=== PATIENT | female | born 1960 | race Caucasian/White ===

== ENCOUNTER 2023-03-25 11:00 | Emergency (ER) | payer OTHER, SELFPAY ==
[2023-03-25 11:43] VITALS: BP 116/72; PULSE 72; RESP 16; TEMP 36.3; O2SAT 99; BMI 23.0
--- NOTE | 2023-03-25 15:05 | ED.GENADULT ---
HPI - General Adult General Chief complaint: Back Injury/Pain Stated complaint: pain behind right shoulder blade Time Seen by Provider: 03/25/23 15:05 History of Present Illness HPI narrative: Two days of pain behind right shoulder blade, I thought I pulled a muscle . 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 Referred by clinic. Patient has used iced/ heat/tylenol ( two this morning). 62-year-old woman presenting to the emergency department with complaint of 2 days of increasing pain sharp deep to her right shoulder blade. Does have a history of herniated discs and has had disc surgery of the lumbar spine. This is not actually radiating down her arm. Not actually weak. Feels okay initially in the morning but once gets moving starts to hurt much more. No particular trauma but did spend the weekend hunched over making jewelry. Hurts more to extend neck and spine/stand straight up. Has taken acetaminophen without relief. Also icing and heating. Was just too uncomfortable as notice by her colleagues recommended to be evaluated. Related Data Home Medications Medication Instructions Recorded Confirmed dextroamphetamine-amphetamine ER 1 cap PO DAILY 03/25/23 03/25/23 30 mg 24hr capsule,extend release (Adderall XR) Allergies Allergy/AdvReac Type Severity Reaction Status Date / Time No Known Drug Allergies Allergy Verified 03/25/23 11:47 Review of Systems Status of ROS: Reports: 6 or more systems reviewed and unremarkable except as noted in History and below PFSH PFS Social History Smoking Status: Never smoker Do you use any of these nicotine containing products: None How often do you have a drink containing alcohol: never AUDIT-C Alcohol total score: 0 Non-prescribed substance use: denies use Exam Narrative: Exam Narrative: When I enter the room is standing leaning over the counter a little bit. Draped with a blanket. Clearly very uncomfortable. There a pile of tissues on the desk. Generally slow and cautious in movements. Head is atraumatic. Neck is nontender. demonstrates limited neck rotation to the right to about 40? before pain becomes more intense. Extension is also uncomfortable. Do not appreciate any swellings or erythema. Good range of motion about the shoulder but elevation of the right arm starts to cause pain as well. Extremely tender to palpation of the right rhomboids with scapular retraction. Tense in the trapezial musculature on the right. Well-perfused peripherally. Good pulses and sensation. Good and equal management trainee program stores strength. Const: Vital Signs, click to edit/add: Vital Signs - 24 hr 03/25/23 11:43 03/25/23 15:58 Temperature 97.3 F L 97.1 F L Pulse Rate [Pulse Oximeter] 72 73 Respiratory Rate 16 24 Blood Pressure [Ri ght Upper Arm] 116/72 128/77 Pulse Oximetry 99 Oxygen Delivery Me thod Room Air Documenting provider has reviewed patient's vital signs: yes Course Vital Signs Vital signs: Initial Vital Signs Temperature 97.3 F L 03/25/23 11:43 Temperature Source Temporal Artery Scan 03/25/23 11:43 Pulse Rate 72 03/25/23 11:43 Respiratory Rate 16 03/25/23 11:43 Blood Pressure 116/72 03/25/23 11:43 Blood Pressure Mean 86 03/25/23 11:43 Pulse Oximetry 99 03/25/23 11:43 Oxygen Delivery Method Room Air 03/25/23 11:43 Vital Signs Temperature 97.3 F L 03/25/23 11:43 Pulse Rate 72 03/25/23 11:43 Respiratory Rate 16 03/25/23 11:43 Blood Pressure 116/72 03/25/23 11:43 Pulse Oximetry 99 03/25/23 11:43 Oxygen Delivery Method Room Air 03/25/23 11:43 Temperature 97.1 F L 03/25/23 15:58 Pulse Rate 73 03/25/23 15:58 Respiratory Rate 24 03/25/23 15:58 Blood Pressure 128/77 03/25/23 15:58 Pulse Oximetry 99 03/25/23 11:43 Oxygen Delivery Method Room Air 03/25/23 11:43 Medical Decision Making MDM Narrative Medical decision making narrative: Think this is more likely add a jumped facet and resulting muscle spasm. Clearly she has reproducible pain in the rhomboids. Given her history of cervical disease this do could be a radicular pain from there. Unclear though of ?bulging disc? is related. Does not have peripheral symptoms beyond the rhomboids. Without new trauma imaging modalities readily available in the ER I think are less useful.. MRI spoken for at the moment and could be managed outpatient. I believe Ms. Shelby was hoping for an MRI in the emergency department. I did offer localized anesthetic injection of the rhomboid area which was declined. Also offered other injection of pain medicine but she is driving and general would prefer not to take medication if possible. We discussed potential benefit of steroids but she would like to defer that at this time to follow up. See patient discharge plan Discharge Plan Discharge Clinical Impression: Neck arthralgia, Muscle spasm, Rhomboid pain Patient Disposition: Home, Self-Care Condition: Stable Additional Instructions: I would place ice packs few times daily over the next few days as discussed. Could alternate with warm moist packs as well. Can take up to 800 mg of ibuprofen per dose or up to 1000 mg of acetaminophen per dose. Alternative to the ibuprofen could be up to 500 mg naproxen 2 times daily. Either ibuprofen or naproxen could be combined with acetaminophen. Remember that each tablet of Percocet contains 325 mg of acetaminophen. I would call today or tomorrow to schedule a follow-up within a week with your primary care provider to discuss next steps in evaluation or care. This will likely include steroid of some sort as next step in medication. Please see handout for ideas for upper back stretching/mobilization. Try those neck pull-downs as well. Percocet from [facility]. Prescriptions: No Action dextroamphetamine-amphetamine [Adderall XR] 30 mg capsule,extended release 24hr 1 cap PO DAILY Stand Alone Forms: [id number] Info Instructions
[2023-03-25 15:58] VITALS: BP 128/77; PULSE 73; RESP 24; TEMP 36.2
== END 2023-03-25 15:59 | disposition home or self-care (01) ==
LOC: ED 15:57
PROVIDERS: Emergency Provider Family Medicine
DX: M62.830 Muscle spasm of back (principal); S46.811A Strain of other muscles, fascia and tendons at shoulder and upper arm level, right arm, initial encounter
CPT/HCPCS: 99283